=== PATIENT | female | born 1990 | race African-American/Black ===

== ENCOUNTER 2017-10-16 02:01 | Inpatient (IN) | payer OTHER ==
[~2017-10-16] VITALS: Ht 160 cm; Wt 62.6 kg
[~2017-10-16 02:01] MED LIST: ALBU17AE26
[2017-10-16] MEDS ORDERED: IPRATROPIUM/ALBUTEROL 0.5-3(2.5)MG/3ML NEB HHN ONE ×2 (03:00→03:45)
[2017-10-16] MEDS ORDERED: PREDNISONE 20MG TABLET PO ONE (03:00)
[2017-10-16 04:56] LABS: BASOPHILS % 0.1 % (0.0-2.0); EOSINOPHILS % 2.4 % (0.0-5.0); HEMATOCRIT. 34.8 % (36.0-48.0); HEMOGLOBIN. 11.6 g/dL (12.0-16.0); LYMPHOCYTES % 9.2 % (20.0-50.0); MEAN CORPUSCULAR HEMOGLOBIN 29.5 pg (28.0-32.0); MEAN CORPUSCULAR VOLUME 88.5 fL (81.0-99.0); MEAN PLATELET VOLUME 6.9 fl (7.4-10.4); MONOCYTES % 4.1 % (2.0-8.0); NEUTROPHILS % 84.2 % (40.0-76.0); PLATELET 288 x1000/uL (130-400); RED BLOOD CELL COUNT 3.93 mill/uL (4.2-5.4); RED CELL DISTRIBUTION WIDTH 13.8 % (11.6-14.6)
[2017-10-16 05:05] LABS: CHLORIDE 109 mEq/L (98-107)
[2017-10-16] MEDS ORDERED: NA PHOS,M-B/NA PHOS,DI-BA ENEMA 118ML PR PRN ×2 (07:30→09:00)
[2017-10-16] MEDS ORDERED: ONDANSETRON HCL 4MG/2ML VIAL IV PRN ×2 (07:30→09:00)
[2017-10-16] MEDS ORDERED: TRAMADOL 50MG TABLET PO PRN ×2 (07:30→09:00)
[2017-10-16] MEDS ORDERED: MAGNESIUM/ALUMINUM HYDROXIDE/SIMETHICONE 30ML UDC PO PRN ×2 (07:30→09:00)
[2017-10-16] MEDS ORDERED: DIPHENHYDRAMINE 50MG/ML VIAL IV PRN ×2 (07:30→09:00)
[2017-10-16] MEDS ORDERED: ZOLPIDEM TARTRATE 5MG TABLET PO PRN ×2 (07:30→09:00)
[2017-10-16] MEDS ORDERED: IPRATROPIUM/ALBUTEROL 0.5-3(2.5)MG/3ML NEB HHN SCH (07:30)
[2017-10-16] MEDS ORDERED: ACETAMINOPHEN 325MG TABLET PO PRN ×2 (07:30→09:00)
[2017-10-16] MEDS ORDERED: GUAIFENESIN/DM 600MG/30MG ER TAB 12HR PO SCH (07:30)
[2017-10-16] MEDS ORDERED: IPRATROPIUM/ALBUTEROL 0.5-3(2.5)MG/3ML NEB INH PRN ×2 (07:30→09:00)
[2017-10-16] MEDS ORDERED: CLONIDINE 0.1MG TABLET PO PRN ×2 (07:30→09:00)
[2017-10-16] MEDS ORDERED: KETOROLAC 15MG/ML VIAL IV PRN ×2 (07:30→09:00)
[2017-10-16] MEDS ORDERED: GUAIFENESIN 200MG/10ML SUGAR FREE UDC PO PRN ×2 (07:30→09:00)
[2017-10-16] MEDS ORDERED: LORAZEPAM 0.5MG TABLET PO PRN ×2 (07:30→09:00)
[2017-10-16] MEDS ORDERED: DOCUSATE SODIUM 100MG CAPSULE PO PRN ×2 (07:30→09:00)
[2017-10-16 08:32] LABS: *AMPHETAMINES SCREEN URINE NEGATIVE (NEGATIVE); *BARBITURATES SCREEN URINE NEGATIVE (NEGATIVE); *BENZODIAZEPINES SCREEN URINE NEGATIVE (NEGATIVE); *COCAINE SCREEN URINE NEGATIVE (NEGATIVE); CANNABINOID URINE SCREEN NEGATIVE (NEGATIVE); METHADONE URINE SCREEN NEGATIVE (NEGATIVE); OPIATES URINE SCREEN NEGATIVE (NEGATIVE); PHENCYCLIDINE URINE SCREEN NEGATIVE (NEGATIVE)
[2017-10-16] MEDS ORDERED: FAMOTIDINE 20MG/2ML VIAL IV SCH (09:00)
[2017-10-16] MEDS ORDERED: POTASSIUM CHLORIDE 20MEQ/PACKET PO SCH (09:45)
[2017-10-16 09:55] VITALS: BP 112/65
[2017-10-16] MEDS: GUAIFENESIN/DM 600MG/30MG ER TAB 12HR PO SCH ×2 (10:22→20:13)
[2017-10-16] MEDS: FAMOTIDINE 20MG/2ML VIAL IV SCH ×2 (10:22→20:13)
[2017-10-16] MEDS ORDERED: KCL 20MEQ/100ML PREMIX 100 ML IV SCH (11:00)
[2017-10-16 12:30] VITALS: BP 110/62
[2017-10-16] MEDS: IPRATROPIUM/ALBUTEROL 0.5-3(2.5)MG/3ML NEB HHN SCH ×3 (12:45→21:03)
[2017-10-16] MEDS ORDERED: METHYLPREDNISOLONE SOD SUCC 125 MG/2 ML VIAL IV SCH (14:00)
[2017-10-16] MEDS: METHYLPREDNISOLONE SOD SUCC 125 MG/2 ML VIAL IV SCH ×2 (14:15→21:39)
[2017-10-16 16:00] VITALS: BP 118/66
[2017-10-16 20:00] VITALS: BP 134/78
[2017-10-17] VITALS: BP 99/52
[2017-10-17] MEDS: IPRATROPIUM/ALBUTEROL 0.5-3(2.5)MG/3ML NEB HHN SCH ×3 (00:42→09:10)
[2017-10-17 04:00] VITALS: BP 103/46
[2017-10-17] MEDS: METHYLPREDNISOLONE SOD SUCC 125 MG/2 ML VIAL IV SCH (05:26)
[2017-10-17 08:00] VITALS: BP 119/64
[2017-10-17] MEDS: FAMOTIDINE 20MG/2ML VIAL IV SCH (08:08)
[2017-10-17] MEDS: GUAIFENESIN/DM 600MG/30MG ER TAB 12HR PO SCH (08:08)
[2017-10-17 11:32] VITALS: BP 119/64
[2017-10-17 12:00] VITALS: BP 113/59
[2017-10-17] MEDS ORDERED: BUDESONIDE 0.5MG/2ML NEB HHN SCH (12:00)
[2017-10-17] MEDS ORDERED: NICOTINE 7MG PATCH TD SCH (12:00)
[2017-10-17] MEDS ORDERED: MONTELUKAST SODIUM 10MG TABLET PO SCH (17:00)
[2017-10-17 17:09] LABS: CLARITY URINE CLEAR (CLEAR); COLOR URINE YELLOW (YELLOW); KETONES URINE NEGATIVE (NEGATIVE); LEUKOCYTE ESTERASE URINE NEGATIVE (NEGATIVE); NITRITE URINE NEGATIVE (NEGATIVE); OCCULT BLOOD URINE 1+ (NEGATIVE); PH URINE 5.5 (4.5-8.0); PROTEIN URINE NEGATIVE (NEGATIVE); SPECIFIC GRAVITY URINE 1.026 (1.005-1.030); UROBILINOGEN URINE 0.2 E.U./dL (0.2-1.0)
[2017-10-17] MEDS ORDERED: FAMOTIDINE 20MG TABLET PO SCH (21:00)
== END 2017-10-17 12:25 | disposition home or self-care (01) | DRG 189 ==
LOC: ER 02:01 → 5WST 04:30 → ENRESERV 06:56 → ER 08:47
PROVIDERS: ADMIT Internal Medicine; ATTEND Internal Medicine
DX: J96.00 Acute respiratory failure, unspecified whether with hypoxia or hypercapnia (principal); J45.902 Unspecified asthma with status asthmaticus; E83.51 Hypocalcemia; D64.9 Anemia, unspecified; E87.6 Hypokalemia; F17.210 Nicotine dependence, cigarettes, uncomplicated; J00 Acute nasopharyngitis [common cold]; Z82.3 Family history of stroke; Z71.6 Tobacco abuse counseling
CPT/HCPCS: 36415; 71045; 80048; 80305; 81003; 81025; 83036; 85025; 87086; 93005; 94640; 99285; J1885; J2930; J3480; J3490; J7050; J7512; J7620; J7626